=== PATIENT | male | born 1985 | race African-American/Black ===

== ENCOUNTER 2020-11-30 10:07 | Outpatient (CLI) | payer OTHER ==
--- NOTE | 2020-11-30 12:00 | Ultrasound Report ---
PROCEDURE: Testicle INDICATIONS: SCROTAL VARICES TECHNIQUE: Real-time scanning was performed of the scrotum and testicles, with image documentation. Color and p ulse Doppler interrogation was performed of both testicles. COMPARISON: None. FINDINGS: Right: Testicle is normal in size at 4.8 x 2.1 x 3.2 cm, and there are few nonspecific microcalcific ations. Epididymis is normal in overall size and morphology. No hydrocele. Varicocele noted. [place] ing scrotal skin is normal in thickness. Left: Testicle is normal in size at 4.7 x 2.1 x 3.3 cm, and there are few nonspecific microcalcifica tions . Left macrocalcification also noted. Epididymis is normal in overall size and morphology. No hydrocele. Varicocele noted. Overlying scrotal skin is normal in thickness. Doppler: Color and pulse Doppler demonstrate normal and symmetric arterial flow in both testicles. IMPRESSION: Bilateral varicoceles. Few bilateral nonspecific testicular microcalcifications. Reviewed by: Dilshad Martins MD on 11/30/2020 11:59 AM PDT Approved by: Dilshad Martins MD on 11/30/2020 11:59 AM PDT Station ID: [id number]
== END 2020-11-30 10:08 | disposition home or self-care (01) ==
LOC: DI 10:07
PROVIDERS: ATTEND Urology
DX: I86.1 Scrotal varices (principal)

== ENCOUNTER 2020-12-21 08:16 | Outpatient (CLI) | payer OTHER ==
[2020-12-21 09:18] LABS: PROLACTIN 11.02 ng/mL
[2020-12-21 09:41] LABS: FOLLICLE STIMULATING HORMONE 2.19 mIU/mL
[2020-12-21 09:42] LABS: LUTEINIZING HORMONE 4.91 mIU/mL
== END 2020-12-21 08:17 | disposition home or self-care (01) ==
LOC: LAB 08:16
PROVIDERS: ATTEND Urology
DX: E29.1 Testicular hypofunction (principal)
CPT/HCPCS: 36415; 81599; 82670; 83001; 83002; 84146; 84402; 84403